=== PATIENT | female | born 1975 | race Caucasian/White ===

== ENCOUNTER 2019-03-23 21:52 | Emergency (ER) | payer OTHER ==
[~2019-03-23] VITALS: Ht 157.5 cm; Wt 81.2 kg
[2019-03-23 21:59] VITALS: BP 145/64; Ht 157.5 cm; Wt 81.2 kg
== END 2019-03-23 22:40 | disposition home or self-care (01) ==
LOC: ED 21:52
DX: J06.9 Acute upper respiratory infection, unspecified (principal)